=== PATIENT | female | born 1990 | race Caucasian/White ===

== ENCOUNTER 2017-07-08 13:18 | Emergency (ER) | payer OTHER ==
[2017-07-08 13:30] VITALS: BP 124/82; PULSE 98; RESP 18; TEMP 97.9; O2SAT 97
[2017-07-08] MEDS ORDERED: ONDANSETRON DISINTEGRATING 4 MG TAB PO ONE (14:23)
--- NOTE | 2017-07-08 14:41 | EDPHY ---
H & P Time Seen by Provider: 07/08/17 14:19 HPI/ROS: CHIEF COMPLAINT: "Screaming headache" post snowboarding head injury HISTORY OF PRESENT ILLNESS: 26-year-old female arrives via private vehicle after she was the helmeted snow boarder at [place], fell at a high rate of speed impacting her occiput, breaking her helmet. Positive amnesia. Questionable brief loss of consciousness. She is complaining of a severe headache, nausea. She is complaining of midline C-spine pain. Denies: Peripheral paresthesia, weakness, numbness, facial complaints such as weakness, numbness, tingling, dizziness, visual field cuts, alcohol or drug use, chest pain, abdominal pain, vomiting, peripheral musculoskeletal injury PRIMARY CARE PROVIDER: REVIEW OF SYSTEMS: A ten point review of systems was performed and is negative with the exception of the items mentioned in the HPI PAST MEDICAL/SURGICAL HISTORY: no anticoagulant use, no relevant medical/ surgical history SOCIAL HISTORY: denies alcohol use at time of incident PHYSICAL EXAM 1) GENERAL: Well-developed, well-nourished, alert and oriented. Appears to be in no acute distress. Answering questions appropriately. 2) HEAD: Normocephalic, atraumatic 3) HEENT: Pupils equal, round, reactive to light bilaterally. Negative Horners. Nasopharynx, oropharynx, clear. No deformity or angulation of nose. No septal hematoma. No rhinorrhea. No oral trauma. Ears bilaterally with normal tympanic membranes. No hemotympanum. No fluid or blood in the external auditory canal. No raccoon eyes. No Garibay sign. Teeth are normally aligned with no gross malocclusion, TMJ bilaterally nontender, facial bones nontender including the zygomatic arch, maxilla mandible. 4) NECK: patient is unable to completely differentiate between true midline pain versus just lateral of midline pain.. 5) LUNGS: Clear to auscultation bilaterally, no wheezes, no rhonchi, no retractions. No obvious signs of trauma. No chest wall pain. No flaring, no grunting. Moving symmetrically. No crepitus. 6) HEART: Regular rate and rhythm, 7) ABDOMEN: No guarding, no rebound, no focal tenderness, no peritoneal signs, no signs of trauma, no ecchymosis 8) MUSCULOSKELETAL: Moving all extremities, no focal areas of tenderness, no obvious trauma. 9) BACK:No midline vertebral tenderness, no fluctuance, no step-off, no obvious trauma, no visual or palpable abnormality. 10) SKIN: No laceration. No abrasion DIFFERENTIAL DIAGNOSIS: In no particular order my differential includes but is not limited to intracranial hemorrhage, skull fracture, cervico-cranial vessel disssection, muscle strain. Smoking Status: Never smoked Constitutional: Initial Vital Signs Temperature (C) 36.6 C 07/08/17 13:25 Heart Rate 98 07/08/17 13:25 Respiratory Rate 18 07/08/17 13:25 Blood Pressure 124/82 H 07/08/17 13:25 O2 Sat (%) 97 07/08/17 13:25 O2 Delivery Mode Room Air Allergies/Adverse Reactions: cephalexin [From Keflex] Allergy (Verified 07/08/17 13:25) Home Medications: Medication Instructions Recorded Cyclobenzaprine [Flexeril 10 MG 10 mg PO TID #15 tab 07/08/17 (RX)] MDM/Departure - MDM Imaging Results: Imaging Impressions Cervical Spine CT 07/08/17 14:42 Impression: Head CT: 1. No acute abnormalities. Cervical Spine: 1. No acute abnormalities. 2. Cannot exclude ligament, spinal cord and/or vascular abnormalities on this exam. If there is persistent pain or neurologic deficit, consider MRI and/or flexion and extension radiographs of the cervical spine. Dr. Reid discussed these findings by telephone with Rosendo Rodriguez on 07/08 at 16:[address] 07/08/17 14:42 Impression: Head CT: 1. No acute abnormalities. Cervical Spine: 1. No acute abnormalities. 2. Cannot exclude ligament, spinal cord and/or vascular abnormalities on this exam. If there is persistent pain or neurologic deficit, consider MRI and/or flexion and extension radiographs of the cervical spine. Dr. Reid discussed these findings by telephone with Rosendo Rodriguez on 07/08 at 16:19 hours. Images images reviewed myself Medications Given: Discontinued Medications Ondansetron HCl (Zofran Odt) 4 mg PO EDNOW ONE Stop: 07/08/17 14:24 Last Admin: 07/08/17 14:30 Dose: 4 mg ED Course/Re-evaluation: 2:38 p.m.: Patient has removed her cervical collar as it was causing her increased pain the occiput but does note midline C-spine pain. She does not want to be replaced back in the cervical collar which I recommended. Will obtain imaging of the cervical spine and head for following indication: Severe headache, midline C-spine pain. 4:25 p.m.: Re-evaluation. Discussed her negative imaging results. She is answering questions appropriately. Discussed head injury precautions, 2nd impact syndrome. I think the patient can be discharged home with usual and customary head injury and cervical strain precautions instructions. Doubt cervico-cranial vessel dissection. All questions and concerns addressed by myself.Care of patient under supervision of secondary supervising physician Dr Vela . - Depart Disposition: Home, Routine, Self-Care Clinical Impression: Snowboarder, Injury while snowboarding Cervical strain, acute Qualifiers: Encounter type: initial encounter Qualified Code(s): S16.1XXA - Strain of muscle, fascia and tendon at neck level, initial encounter Condition: Good Instructions: Cervical Strain (ED), Head Injury (ED) Additional Instructions: ALTHOUGH THERE IS NO EVIDENCE OF SERIOUS HEAD INJURY AT THIS TIME, DELAYED SIGNS CAN APPEAR 24 TO 48 HOURS AFTER INJURY. WE RECOMMEND THAT YOU DESIGNATE A FRIEND OR FAMILY MEMBER TO OBSERVE YOU OVER THE NEXT FEW DAYS TO ENSURE THAT YOUR CONDITION IS PROGRESSING NORMALLY. PLEASE RETURN TO THE EMERGENCY DEPARTMENT (ED) IMMEDIATELY IF YOU HAVE INCREASED HEADACHE, PERSISTENT HEADACHE , VOMITING, WEAKNESS, CONFUSION OR VISUAL PROBLEMS. WE RECOMMEND THAT YOU DO NOT RESUME CONTACT SPORTS OR ACTIVITIES THAT TAKE COORDINATION OR BALANCE SUCH SKIING OR RIDING A BICYCLE UNTIL CLEARED TO DO SO BY YOUR DOCTOR OR BY A NEUROLOGIST.Return to the ER immediately if you experience new or worsening neck pain, dizziness, visual disturbance, double vision, lightheadedness, facial droop, or any other symptoms that concern you. Avoid deep tissue massage and chiropractic manipulation, until symptom-free, and cleared by your regular health care provider. Adult Pain & Fever Control: We recommend Acetaminophen (Tylenol) and Ibuprofen (Motrin,Advil) for pain and fever control. When fever is high or pain severe, both drugs can be used at the same time, but at different intervals. Please note the time differences. Your dose is: Acetaminophen 650mg every 4 to 6 hours Ibuprofen 600mg every 6 hours with food OR Note: do not take Acetaminophen with Hydrocodone (Vicodin, Lortab) or Oycodone (Percocet). These medications also contain Acetaminophen. No more than 3000mg of Acetaminophen should be taken in 24 hours (for an adult). Prescriptions: Cyclobenzaprine [Flexeril 10 MG (RX)] 10 mg PO TID #15 tab Referrals: Shamika Aaron NP [Primary Care Provider] - 1-2 days without fail
== END 2017-07-08 16:36 | disposition home or self-care (01) ==
DX: S16.1XXA Strain of muscle, fascia and tendon at neck level, initial encounter (principal); V00.311A Fall from snowboard, initial encounter; Y99.8 Other external cause status; Y93.23 Activity, snow (alpine) (downhill) skiing, snowboarding, sledding, tobogganing and snow tubing